=== PATIENT | female | born 1985 | race Caucasian/White ===

== ENCOUNTER 2017-07-08 10:01 | Emergency (ER) | payer OTHER ==
[2017-07-08 10:06] VITALS: RESP 16
--- NOTE | 2017-07-08 10:09 | EDPHY ---
H & P Stated Complaint: hx anxiety/ptsd had panic attack with dissociative state Time Seen by Provider: 07/08/17 10:08 HPI/ROS: HPI: This is a 32-year-old female who presents with Chief Complaint: hx anxiety/ptsd had panic attack with dissociative state Location: psych Quality: Anxiety and panic attack Duration: Yesterday afternoon Signs and Symptoms: No fever, no LOC, no dizziness, no nausea, no vomiting, no headache Timing: resolved Severity: Moderate Context: Patient has a history of anxiety and posttraumatic stress disorder presents to the emergency room with complaints of having a panic attack during a business meeting yesterday afternoon. Patient reports that she did not feel anxious prior to the meeting. Witnesses reported that she was in a" dissociative state" but did not lose consciousness/no seizure activity. Patient remembers feeling "out of it" for a small time period and then shortly after having a panic attack that is typical for her. Patient reports yesterday evening she return to her baseline and today she feels back to her baseline. She does admit to feeling some anxiety about what happened yesterday at work. She denies any chest pain/shortness of breath/fever/abdominal pain/nausea/ vomiting/dizziness/urinary symptoms. LMP 1-7 days ago. Patient manages her anxiety and PTSD with relax action techniques and does not take any psychiatric medication. She denies suicidal ideation/homicidal ideation. Modifying Factors: None Comment: ROS: see HPI Constitutional: No fever, no chills, no weight loss Eyes: No blurred vision Respiratory: No shortness of breath, no cough Cardiovascular: No chest pain Gastrointestinal: No nausea, no vomiting, no diarrhea Genitourinary: No dysuria Extremities: No myalgias Neurologic: No weakness, no numbness Skin: No rashes Hematologic: No bruising, no bleeding MEDICAL/SURGICAL/SOCIAL HISTORY: Medical history: Jaw locked x 1 /PTSD Surgical history: Denies Social history: Employed. . CONSTITUTIONAL: Extremely well-appearing adult white female, awake and alert, no obvious distress HEENT: Atraumatic and normocephalic, PERRL, EOMI. Tympanic membranes clear. Oropharynx clear, no exudate and moist pink mucosa. Airway patent. No lymphadenopathy. No meningismus. Cardiovascular: Normal S1/S2, regular rate, regular rhythm, without murmur rub or gallop. PULMONARY/CHEST: Symmetrical and nontender. Clear to auscultation bilaterally. Good air movement. No accessory muscle usage. ABDOMEN: Soft, nondistended, nontender, no rebound, no guarding, no peritoneal signs, no masses or organomegaly. No CVAT. EXTREMITIES: 2/2 pulses, strength 5/5, no deformities, no clubbing, no cyanosis or edema. NEUROLOGICAL: no focal neuro deficits. GCS 15. SKIN: Warm and dry, no erythema. no rash. Good capillary refill. PSYCH: Good eye contact, no flight of ideas, organized thought process, could insight and judgment, no auditory and visual command hallucinations, no suicidal ideation with a plan, no homicidal ideation, not paranoid Source: Patient Exam Limitations: No limitations - Personal History LMP (Females 10-55): 1-7 Days Ago Current Tetanus/Diphtheria Vaccine: Unsure - Medical/Surgical History Hx Asthma: No Hx Chronic Respiratory Disease: No Hx Diabetes: No Hx Cardiac Disease: No Hx Renal Disease: No Hx Cirrhosis: No Hx Alcoholism: No Hx HIV/AIDS: No Hx Splenectomy or Spleen Trauma: No Other PMH: Jaw locked x 1 /PTSD - Social History Smoking Status: Never smoked Constitutional: Initial Vital Signs Temperature (C) 36.6 C 07/08/17 10:03 Heart Rate 82 07/08/17 10:03 Respiratory Rate 16 07/08/17 10:03 Blood Pressure 130/72 H 07/08/17 10:03 O2 Sat (%) 94 07/08/17 10:03 O2 Delivery Mode Room Air Allergies/Adverse Reactions: No Known Allergies Allergy (Verified 07/08/17 10:02) Home Medications: Medication Instructions Recorded LORazepam [Ativan] 0.5 mg PO Q12 PRN #6 tablet 07/08/17 Medical Decision Making - Diagnostics Imaging Results: 12 lead EKG: Indication: Panic attack Rhythm: Normal sinus rhythm, 67 beats per minute [place]: Normal Intervals: Normal QRS: Normal ST segments: Normal T waves: Nonspecific changes INTERPRETATION: Normal EKG The 12 lead EKG was interpreted by myself and with attending. ED Course/Re-evaluation: Vital signs reviewed and completely stable upon arrival. EKG shows no signs of arrhythmia/ischemic changes Labs and p.o. Ativan 1 mg given Does not meet M1 criteria or Detainer Labs reviewed and grossly unremarkable; no signs of anemia/acute kidney injury/ pulmonary embolism/arrhythmia/ACS/thyroid disease/electrolyte imbalance Give small amount of Ativan to use as needed, follow up with PCP , and establish care with behavioral health This patient was seen under the supervision of my secondary supervising physician. I evaluated care for this patient independently. Differential Diagnosis: Differential including but not limited to peripheral and central causes of vertigo, orthostatic causes including dehydration, and blood loss, arrhythmia, electrolyte imbalance, anxiety. - Data Points Laboratory Results: Laboratory Results 07/08/17 10:25 07/08/17 10:25 07/08/17 07/08/17 07/08/17 10:25 10:25 10:25 WBC RBC Hgb Hct MCV MCH MCHC RDW Plt Count MPV Neut % (Auto) Lymph % (Auto) [place] % (Auto) Eos % (Auto) Baso % (Auto) Nucleat RBC Rel Count Absolute Neuts (auto) Absolute Lymphs (auto) Absolute Monos (auto) Absolute Eos (auto) Absolute Basos (auto) Absolute Nucleated RBC Immature Gran % Immature Gran # D-Dimer < 0.27 ug/mLFEU ug/mLFEU (0.00-0.50) Sodium 142 mEq/L mEq/L (135-145) Potassium 4.7 mEq/L mEq/L (3.5-5.2) Chloride 109 mEq/L mEq/L (97-110) Carbon Dioxide 21 mEq/l L mEq/l (22-31) Anion Gap 12 mEq/L mEq/L (8-16) BUN 20 mg/dL mg/dL (7-23) Creatinine 0.6 mg/dL mg/dL (0.6-1.0) Estimated GFR > 60 Glucose 96 mg/dL mg/dL (70-100) Calcium 9.2 mg/dL mg/dL (8.5-10.4) Magnesium 2.0 mg/dL mg/dL (1.6-2.3) Troponin I < 0.012 ng/mL ng/mL (0.000-0.034) Beta HCG, Qual NEGATIVE 07/08/17 10:25 WBC 6.85 10^3/uL 10^3/uL (3.80-9.50) RBC 4.72 10^6/uL 10^6/uL (4.18-5.33) Hgb 14.6 g/dL g/dL (12.6-16.3) Hct 43.2 % % (38.0-47.0) MCV 91.5 fL fL (81.5-99.8) MCH 30.9 pg pg (27.9-34.1) MCHC 33.8 g/dL g/dL (32.4-36.7) RDW 13.1 % % (11.5-15.2) Plt Count 308 10^3/uL 10^3/uL (150-400) MPV 9.7 fL fL (8.7-11.7) Neut % (Auto) 64.1 % % (39.3-74.2) Lymph % (Auto) 26.7 % % (15.0-45.0) [place] % (Auto) 6.4 % % (4.5-13.0) Eos % (Auto) 1.9 % % (0.6-7.6) Baso % (Auto) 0.6 % % (0.3-1.7) Nucleat RBC Rel Count 0.0 % % (0.0-0.2) Absolute Neuts (auto) 4.39 10^3/uL 10^3/uL (1.70-6.50) Absolute Lymphs (auto) 1.83 10^3/uL 10^3/uL (1.00-3.00) Absolute Monos (auto) 0.44 10^3/uL 10^3/uL (0.30-0.80) Absolute Eos (auto) 0.13 10^3/uL 10^3/uL (0.03-0.40) Absolute Basos (auto) 0.04 10^3/uL 10^3/uL (0.02-0.10) Absolute Nucleated RBC 0.00 10^3/uL 10^3/uL (0-0.01) Immature Gran % 0.3 % % (0.0-1.1) Immature Gran # 0.02 10^3/uL 10^3/uL (0.00-0.10) D-Dimer Sodium Potassium Chloride Carbon Dioxide Anion Gap BUN Creatinine Estimated GFR Glucose Calcium Magnesium Troponin I Beta HCG, Qual Medications Given: Discontinued Medications Lorazepam (Ativan) 1 mg PO EDNOW ONE Stop: 07/08/17 10:18 Last Admin: 07/08/17 10:20 Dose: 1 mg Departure - Departure Disposition: Home, Routine, Self-Care Clinical Impression: Generalized anxiety disorder with panic attacks Condition: Good Instructions: Generalized Anxiety Disorder (ED), Panic Attack (ED) Additional Instructions: Call 911 if you have thoughts of hurting or killing yourself or anyone else, or have any new or worsening symptoms that concern you. Follow-up with your primary care provider in 1-2 weeks. It may benefit you to establish care with a behavior health specialist. Referrals: Snehal Jorgensen NP [Primary Care Provider] - As per Instructions Sheree Veronica MD [Medical Doctor] - As per Instructions Prescriptions: LORazepam [Ativan] 0.5 mg PO Q12 PRN #6 tablet PRN Reason: Anxiety
[2017-07-08] MEDS ORDERED: LORazepam 1 MG TAB PO ONE (10:17)
--- NOTE | 2017-07-08 10:23 | CPEKG ---
Heart Rate: 67 RR Interval: 896 P-R Interval: 168 QRSD Interval: 88 QT Interval: 404 QTC Interval: 427 P [place]: 46 QRS [place]: 5 T Wave [place]: 1 EKG Severity - BORDERLINE ECG - EKG Impression: SINUS RHYTHM EKG Impression: BORDERLINE T ABNORMALITIES, INFERIOR LEADS Electronically Signed By: Magdalena Lopez 08-Jul-2017 15:45:15
[2017-07-08 10:36] LABS: PLATELET COUNT 308 10^3/uL (150-400)
[2017-07-08 11:34] VITALS: BP 128/72; PULSE 62; TEMP 98.1; O2SAT 96
== END 2017-07-08 11:35 | disposition home or self-care (01) ==
DX: F41.0 Panic disorder [episodic paroxysmal anxiety] (principal); F41.1 Generalized anxiety disorder